=== PATIENT | female | born 1945 | race Caucasian/White ===

== ENCOUNTER 2016-05-10 20:08 | Emergency (ER) | payer MEDICARE ==
--- NOTE | 2016-05-10 21:09 | RAD ---
Exam: Two-view right shoulder COMPARISON: None INDICATION: Fall tonight, right arm and elbow pain. FINDINGS: Internal and external rotated AP views of the right shoulder were obtained. There is diffuse bony osteopenia. Two intraosseous suture anchors are noted within the greater tuberosity, and a prosthesis is noted within the distal humerus but incompletely visualized. There is a mildly comminuted, displaced fracture involving the humeral neck and greater tuberosity. There is mild anterior displacement of the distal fracture fragment. Humeral head remains within the glenoid fossa. Mild to moderate degenerative changes are seen within the acromioclavicular joint. Visualized right hemithorax unremarkable. IMPRESSION: Comminuted, mildly displaced fracture involving the humeral neck and greater tuberosity in the setting of osteopenia and prior surgery.
--- NOTE | 2016-05-10 21:12 | RAD ---
Exam: Two-view right elbow COMPARISON: None INDICATION: Fall today, elbow pain. FINDINGS: AP and lateral views of the right elbow were obtained. Diffuse bony osteopenia. Elbow arthroplasty is present, with cemented humeral and ulnar components. No significant pericomponent lucency is identified. Alignment is maintained. There is high density material which projects along the anterior and lateral aspect of the distal humerus which is of uncertain chronicity and significance given lack of comparisons. This does not appear to reflect an acute displaced bone fragment; heterotopic ossification is favored. The radial head is only well seen on the lateral view and is unremarkable. IMPRESSION: Examination of the right elbow is slightly limited due to lack of comparisons, however no definite acute osseous abnormality is seen within the right elbow. The setting of right elbow arthroplasty.
[2016-05-10] MEDS ORDERED: IBUPROFEN 600 MG TABLET ONE (21:20)
[2016-05-10] MEDS ORDERED: HYDROCODONE/ACETAMINOPHEN 5/325MG TABLET ONE (21:20)
== END 2016-05-10 21:57 | disposition home or self-care (01) ==
LOC: ED 20:08
DX: S42.201A Unspecified fracture of upper end of right humerus, initial encounter for closed fracture (principal); I10 Essential (primary) hypertension; E03.9 Hypothyroidism, unspecified; Z86.73 Personal history of transient ischemic attack (TIA), and cerebral infarction without residual deficits; Z85.42 Personal history of malignant neoplasm of other parts of uterus; W01.10XA Fall on same level from slipping, tripping and stumbling with subsequent striking against unspecified object, initial encounter
CPT/HCPCS: 73070; 73030; 99283; 99284; A9270 ×2

== ENCOUNTER 2016-06-19 06:04 | Emergency (ER) | payer MEDICARE ==
[2016-06-19 07:13] LABS: BASO # 0.1 K/mm3 (0.0-0.2); BASO % 1.5 % (0.2-1.0); EOS # 0.3 (0.0-0.5); EOS % 4.4 % (0.9-2.9); HEMATOCRIT 34.7 % (37.0-47.0); IMM NEUT% 0.2 % (0-1); LYMPH # 1.2 (1.0-4.8); LYMPH % 19.3 % (15-45); MEAN CELL VOLUME 97.2 fl (81.0-99.0); MEAN CORPUSCULAR HEMOGLOBIN 30.8 pg (27.0-31.0); MEAN CORPUSCULAR HGB CONC 31.7 g/dl (33.0-37.0); MEAN PLATELET VOLUME 10.1 fl (7.4-10.4); MONO # 0.6 (0.0-0.8); MONO % 9.5 % (4-12); NEUT % 65.1 % (43-75); PLATELET COUNT 315 K/mm3 (130-400); RED CELL DISTRIBUTION WIDTH 14.2 % (11.5-14.5)
[2016-06-19 07:38] LABS: ALB/GLOB RATIO 1.2 (>1.0); ALBUMIN 3.4 gm/dL (3.5-5.7); CALCIUM 9.2 mg/dL (8.6-10.3)
--- NOTE | 2016-06-19 07:56 | CT ---
HEAD W/O CON COMPARISON: CT head without contrast 07/29/2014 HISTORY: Difficulty walking, diaphoresis, and nausea/vomiting. History of left frontal parietal infarct. TECHNIQUE: Using a [employer] Aquilion [address] scanner, images were obtained through the head. An automated dose reduction technique was used to minimize patient radiation dose. DOSE INFORMATION: CTDIvol (mGy): 51.70 DLP(mGycm): 913.10 FINDINGS: Mass: None Intracranial Hemorrhage: None Acute Infarction: No acute infarction. Cerebral hemispheres: Old watershed infarct between the left middle and anterior cerebral artery distributions. Moderate atrophy. No change. Basal ganglia: Normal Thalami: Normal Brainstem: Normal Cerebellum: Mild atrophy. Ventricles: Normal Basilar cisterns: Normal Corpus callosum: Normal Pituitary fossa: Normal Middle ears and mastoid air cells: Normal Orbits and sinuses: Normal Skull and scalp: Normal Dural sinuses and vessels: Normal IMPRESSION: 1. No acute infarct. No intracranial hemorrhage. 2. Old infarct between the left middle and anterior cerebral artery distributions. No change in moderate cerebral atrophy. No change in mild cerebellar atrophy. Preliminary report by [facility] radiologist Diallo Evangelista MD 06/19/2016 at 07:04
== END 2016-06-19 09:00 | disposition home or self-care (01) ==
LOC: ED 06:04
DX: R53.1 Weakness (principal); I10 Essential (primary) hypertension; C55 Malignant neoplasm of uterus, part unspecified; Z86.73 Personal history of transient ischemic attack (TIA), and cerebral infarction without residual deficits; F17.210 Nicotine dependence, cigarettes, uncomplicated

== ENCOUNTER 2016-06-19 10:35 | Observation (INO) | payer MEDICARE ==
[2016-06-19] MEDS ORDERED: MECLIZINE HCL 25 MG TABLET ONE (11:35)
[2016-06-19] MEDS ORDERED: LACTATED RINGERS 1,000 ML ONE (11:35)
[2016-06-19] MEDS ORDERED: ONDANSETRON 4 MG/2ML 2 ML VIAL ONE (11:35)
[2016-06-19] MEDS ORDERED: DIPHENHYDRAMINE HCL 50 MG/1 ML VIAL ONE (11:35)
[2016-06-19] MEDS ORDERED: PREDNISONE 20 MG TABLET ONE (12:21)
[2016-06-19] MEDS ORDERED: ACETAMINOPHEN 325 MG TABLET PO PRN (12:46)
[2016-06-19] MEDS ORDERED: CALCIUM CARBONATE 500 MG TAB.CHEW PO PRN (12:46)
[2016-06-19] MEDS ORDERED: BLISTEX LIPSTICK 1 EACH TP PRN (12:46)
[2016-06-19] MEDS ORDERED: BISACODYL 10 MG SUP PR PRN (12:46)
[2016-06-19] MEDS ORDERED: MAGNESIUM HYDROXIDE 30 ML UDCUP PO PRN (12:46)
[2016-06-19] MEDS ORDERED: BISACODYL 5 MG TABLET.EC PO PRN (12:46)
[2016-06-19] MEDS ORDERED: MENTHOL/CETYLPYRD 1 EACH LOZENGE PO PRN (12:46)
[2016-06-19] MEDS ORDERED: SODIUM CHLORIDE 0.9% 100 ML IV PRN (12:46)
[2016-06-19] MEDS ORDERED: SODIUM CHLORIDE 0.9% 1,000 ML IV SCH (12:46)
[2016-06-19 13:00] VITALS: BMI 25.3
[2016-06-19] MEDS ORDERED: PUMP TUBING ONE (14:23)
[2016-06-19] MEDS ORDERED: ONDANSETRON 4 MG/2ML 2 ML VIAL IV PRN (15:57)
[2016-06-19] MEDS ORDERED: ONDANSETRON 4 MG ODT TAB PO PRN (15:57)
[2016-06-19] MEDS ORDERED: LACTATED RINGERS 1,000 ML IV SCH (16:00)
[2016-06-19] MEDS ORDERED: SCOPOLAMINE 1.5 MG/72 HR 1 EACH PATCH TD SCH (17:00)
--- NOTE | 2016-06-19 17:44 | HP ---
CHEYANNE TURNER [id number] DATE OF ADMISSION: June 19, 2016 CHIEF COMPLAINT: Vomiting and dizziness. HISTORY OF PRESENT ILLNESS: The patient is a 70-year-old female initially seen in the [facility] Emergency Department this morning around 9:00 with complaints of nausea and vomiting and some reports of some speech disturbance. Upon evaluation in the emergency department, her symptoms seem to improve, and she was discharged home with possible transient ischemic attack diagnosis versus viral illness, versus food poisoning. Shortly after going home, however, she developed recurrent symptoms and returned for repeated evaluation. She reports that her symptoms first started around 4:00 in the morning after she got up out of bed after a bad dream. She had trouble getting to the bathroom because of vertigo symptoms. She had nausea and vomiting several times. She had a normal bowel movement but persistent vertigo symptoms and vomiting with nausea along with some speech disturbance caused her to come in initially. She reports that shortly after returning home, her symptoms returned. She reports a spinning sensation. She feels like she has had food poisoning. There was some concern about a possible food allergy as well. She has had a history of food allergy associated with mollusks but has been able to eat other types of shellfish like shrimp without trouble. She had some shrimp last night around 8:00 at night. She has not had any rash or any dyspnea symptoms. She denies any complaints of headache. She has had no further speech disturbance, no numbness or weakness in the extremities. She has had no diarrhea. She denies any focal abdominal pain. No visual disturbance. REVIEW OF SYSTEMS: Review of systems is negative for any recent fever or chills, upper respiratory symptoms. She has had no cough, dyspnea, wheezing, chest pain or shortness of breath. She denies any heartburn or focal abdominal pain. No diarrhea or constipation. No new arthralgias, no headaches, fainting, blackouts or seizures, no skin rashes. No urinary complaints. Review of systems is otherwise negative. PAST MEDICAL HISTORY: Is significant for: 1. Osteoporosis. 2. She has had recent proximal right humerus fracture after a fall that was associated with alcohol use. 3. She has chronic essential hypertension. 4. She has hypothyroidism on thyroid replacement. 5. She has a remote history of cerebrovascular disease with a stroke causing some mild expressive aphasia but no residual motor defects. 6. She has a history of uterine cancer currently in surgical remission. 7. She has moderate to severe osteoporosis with a history of multiple fractures associated with falls. PAST SURGICAL HISTORY: Significant for: 1. Right elbow fracture with severe complications requiring a joint replacement in January of 2015. 2. She had a section in the . 3. She had a hysterectomy due to uterine cancer in 1986. 4. She had rotator cuff repair in the right shoulder years ago. 5. She had a left ankle fracture requiring open reduction internal fixation in July of 2014, again after a fall associated with alcohol use. ALLERGIES: Documented to: 1. MOLLUSKS BUT DENIES SHELLFISH ALLERGIES. SHE HAS NEVER BEEN TESTED. 2. SHE REPORTS ADVERSE REACTION TO DETROL. FAMILY HISTORY: Unremarkable. SOCIAL HISTORY: Patient lives at home with her . They have seven dogs and one cat. They live in [place] in a home. She has three grown children scattered about the country. She is a former smoker. She quit in 1983 after a ten pack-year history of smoking. She drinks about four drinks a day most nights. There is no history of any alcohol withdrawal symptoms in the past documented and no history of any illicit drug use. Her primary care provider is Dr. Ivette Naik formerly known as Dr. Ivette Osei. PHYSICAL EXAMINATION: VITAL SIGNS: Show a BMI of 25.4, weight is 73.5 kilograms. GENERAL: This is well-developed, well-nourished female in no acute distress. HEENT: Exam is unremarkable. NECK: Shows full range of motion without tenderness. CHEST: Lungs are clear to auscultation bilaterally. CARDIOVASCULAR: Exam reveals a regular rate and rhythm without a murmur. ABDOMEN: Soft, nontender, nondistended with positive bowel sounds. EXTREMITIES: Right arm is in a shoulder immobilizer. No peripheral edema. PELVIC: Exam is deferred. RECTAL: Exam is deferred. NEUROLOGIC: Exam is nonfocal. LABORATORY STUDIES: Performed at the time of her initial emergency department visit showed CBC with a white count of 6.2, hemoglobin 11.0 and platelet count of 315,000. Chemistry profile shows sodium 139, potassium 3.6, BUN 30, creatinine 1.0, glucose 93. Liver function tests are normal. Troponin I is less than 0.01. IMAGING STUDIES: A CT of the brain showed old infarct between the left middle cerebral and anterior cerebral artery distribution. There is stable, chronic moderate cerebral atrophy with mild cerebellar atrophy but no acute infarct or hemorrhage. ASSESSMENT: Patient has nausea, vomiting, generalized weakness, and acute vertigo. Suspect these symptoms may be related to viral labyrinthitis versus benign paroxysmal position vertigo. Small chance that she may have had a transient ischemic attack causing some her symptoms. There is some possibility she may be having a food allergy, possible food poisoning. She has chronic hypothyroidism, stable. She has chronic essential hypertension, stable. She has a history of cerebrovascular disease not otherwise specified, stable. PLAN: 1. She is going to be observed overnight. We will get neurologic checks every four hours. 2. She will be on telemetry. 3. We are going to treat her symptoms with Zofran as needed. 4. If she is having recurrent vertigo, we will try a scopolamine patch. 5. Further treatment and recommendations will depend on her hospital course. 6. Venous thromboembolism risk is considered low. cc: Ivette Naik M.D.
[2016-06-19] MEDS ORDERED: LORAZEPAM 0.5 MG TABLET PO PRN (17:46)
[2016-06-19] MEDS: CALCIUM CARBONATE 600 MG/VITAMIN D3 400 UNIT/TABLET PO SCH (21:31)
[2016-06-19] MEDS: DOCUSATE SODIUM 100 MG CAPSULE PO SCH ×2 (21:31→21:35)
[2016-06-20 05:36] LABS: ABSOLUTE NEUTROPHIL COUNT 3.5 K/mm3 (1.8-7.7); BASO % 0.2 % (0.2-1.0); HEMATOCRIT 30.7 % (37.0-47.0); HEMOGLOBIN 9.9 gm/l (12.0-16.0); IMM NEUT% 0.5 % (0-1); LYMPH # 0.8 (1.0-4.8); LYMPH % 17.6 % (15-45); MEAN CELL VOLUME 94.8 fl (81.0-99.0); MEAN CORPUSCULAR HEMOGLOBIN 30.6 pg (27.0-31.0); MEAN CORPUSCULAR HGB CONC 32.2 g/dl (33.0-37.0); MEAN PLATELET VOLUME 9.8 fl (7.4-10.4); MONO # 0.1 (0.0-0.8); MONO % 1.6 % (4-12); NEUT % 80.1 % (43-75); PLATELET COUNT 299 K/mm3 (130-400)
[2016-06-20] MEDS ORDERED: LEVOTHYROXINE SODIUM 25 MCG TABLET PO SCH (07:30)
[2016-06-20] MEDS ORDERED: HYDROCHLOROTHIAZIDE 12.5 MG CAP PO SCH (09:00)
[2016-06-20] MEDS ORDERED: ASPIRIN (ENTERIC COATED) 81 MG TABLET.EC PO SCH (09:00)
[2016-06-20] MEDS ORDERED: METOPROLOL SUCCINATE (XL) 50 MG TAB.PRT.SR PO SCH (09:00)
[2016-06-20] MEDS ORDERED: LOSARTAN POTASSIUM 50 MG TABLET PO SCH (09:00)
[2016-06-20] MEDS: CALCIUM CARBONATE 600 MG/VITAMIN D3 400 UNIT/TABLET PO SCH (09:19)
[2016-06-20] MEDS: DOCUSATE SODIUM 100 MG CAPSULE PO SCH (09:19)
--- NOTE | 2016-06-20 11:39 | PDOC36 ---
Provider Note Subject: Patient with difficulty voiding. Note: PVR of 999 last night after voiding. Patient reports improvement in vertigo symptoms after straight cath. Patient continues to have difficulty voiding completely today and has a PVR of 585- will refer to urology and place Baptiste
[2016-06-20 12:37] VITALS: BP 134/70
--- NOTE | 2016-06-20 18:47 | DS ---
CHEYANNE TURNER DATE OF ADMISSION: June 19, 2016 DATE OF DISCHARGE: June 20, 2016 ADMIT DIAGNOSIS: Dizziness of unclear etiology. DISCHARGE DIAGNOSES: 1. Dizziness, resolved. 2. Urinary retention felt to be etiology for above. HISTORY OF PRESENT ILLNESS: Please see Dr. West's note for details. Briefly, Ms. Turner is a 70-year-old female. She was seen in the emergency room on the morning of admission with complaints of nausea, vomiting and possibly some speech disturbance as well as some dizziness. In the emergency room her symptoms seemed to resolve, and she was discharged home. She returned to the emergency room later that day with worsening dizziness of really unclear etiology. Her workup remained negative. She was subsequently admitted to the hospitalist service. HOSPITAL COURSE: Once in the hospital, she was found to have urinary retention of greater than one liter after voiding. A Baptiste catheter was placed with complete resolution of her dizziness and all other symptoms. On the morning of discharge she was feeling well and was very anxious to go home. We have elected to discharge her home with an indwelling Baptiste with plans for outpatient followup with urology. DISCHARGE MEDICATIONS: Unchanged from admit as follows: 1. Aspirin 81 mg orally daily. 2. Metoprolol 50 mg orally daily. 3. Alendronate 70 mg orally weekly. 4. Calcium and vitamin D twice daily 5. Vitamin B12 1000 mcg orally daily. 6. Levothyroxine 25 mcg orally daily in the morning. 7. Losartan/hydrochlorothiazide one orally daily. DISCHARGE FOLLOW UP: Will be with Dr. Ortiz next week as scheduled. Home Health services were offered to help with Baptiste care, but the patient has declined this and Baptiste education was done prior to discharge. Cc: Kam Ortiz M.D. Ivette Naik M.D.
[2016-06-22] MEDS ORDERED: REMOVE PATCH 1 EACH UNIT TD SCH (17:00)
== END 2016-06-20 16:06 | disposition home or self-care (01) ==
LOC: ED 10:35 → MS 12:21
PROVIDERS: ADMIT Family Medicine; ATTEND Family Medicine
DX: R42 Dizziness and giddiness (principal); R33.9 Retention of urine, unspecified; M81.0 Age-related osteoporosis without current pathological fracture; I10 Essential (primary) hypertension; E03.9 Hypothyroidism, unspecified; Z23 Encounter for immunization; C55 Malignant neoplasm of uterus, part unspecified; Z86.73 Personal history of transient ischemic attack (TIA), and cerebral infarction without residual deficits; F17.210 Nicotine dependence, cigarettes, uncomplicated
CPT/HCPCS: 85025 ×2; 80048; 80053; 84484 ×2; 36415 ×2; 70450; 96375; 99283 ×2; 99284; 96374; 96361; 82962; 93005 ×2; 99285; A9270 ×9; J1200; J7512; J2405; J7120; J7030; G0378 ×2